=== PATIENT | female | born 1945 | race Caucasian/White ===

== ENCOUNTER 2018-07-20 20:37 | Emergency (ER) | payer OTHER, MEDICAID, MEDICARE | END 2018-07-20 21:46 | disposition home or self-care (01) | LOC: CED 20:37 ==

== ENCOUNTER 2018-07-24 19:42 | Emergency (ER) | payer OTHER, MEDICAID | END 2018-07-24 20:30 | disposition home or self-care (01) | LOC: CED 19:42 ==